=== PATIENT | female | born 1930 | race Caucasian/White ===

== ENCOUNTER → 2016-10-13 | Outpatient (CLI) | payer OTHER ==
--- NOTE | 2016-10-13 14:18 | PCVCIMAG ---
APPROVED REPORT Laterality: Bilateral Patient Location: Out-Patient Indications Bruit Stenosis Doppler Spectral Velocity Analysis PSV / EDVPSV / EDV ECA (R) 82 / 8 cm/sECA (L) 107 / 5 cm/s dICA (R) 70 / 17 cm/sdICA (L) 78 / 21 cm/s Mil (R) 63 / 18 cm/smICA (L) 80 / 20 cm/s pICA (R) 34 / 9 cm/spICA (L) 75 / 21 cm/s Bulb (R) 69 / 13 cm/sBulb (L) 56 / 13 cm/s dCCA (R) 77 / 12 cm/sdCCA (L) 67 / 15 cm/s mCCA (R) 76 / 14 cm/smCCA (L) 77 / 11 cm/s Vert (R) 49 / 15 cm/sVert (L) 47 / 10 cm/s ICA/CCA ICA/CCA Findings The right carotid bulb has mild plaque. The right proximal internal carotid artery shows no significant stenosis. The right common carotid artery shows no significant stenosis. The right external carotid artery shows no significant stenosis. The left carotid bulb has moderately severe calcified plaque. The left proximal internal carotid artery shows <40% stenosis. The left common carotid artery shows <40% stenosis. The left external carotid artery shows no significant stenosis. Conclusion 1. Right internal carotid artery plaquing 2. Left common and internal carotid artery stenoses (<40%) 3. Antegrade vertebral flow
--- NOTE | 2016-10-13 14:47 | PCVCIMAG ---
EXAM: NONINVASIVE ARTERIAL EXAMINATION OF BOTH LOWER EXTREMITIES INCLUDING PRE AND POST EXERCISE PRESSURE MEASUREMENTS AND DOPPLER WAVEFORMS INDICATION: Peripheral Arterial Disease. Leg pain. FINDINGS: Right Brachial: 140 mm Hg. Right Dorsalis Pedis: 157 mm Hg. Right Posterior Tibial: 145 mm Hg. Right ANGELICA = 1.12. Left Brachial: 140 mm Hg. Left Dorsalis Pedis: 156 mm Hg. Left Posterior Tibial: 126 mm Hg. Left ANGELICA = 1.11. Post Exercise: Left Brachial 178 mm Hg. Right Dorsalis Pedis: 140 mm Hg. Left Dorsalis Pedis: 184 mm Hg. Right ANGELICA = 0.79. Left ANGELICA = 1.03. IMPRESSION: No resting ischemia in the right lower extremity. Mild exercise induced ischemia in the right lower extremity. No resting ischemia in the left lower extremity. No exercise induced ischemia in the left lower extremity. LOC:[id number]
--- NOTE | 2016-10-13 14:50 | PCVCIMAG ---
EXAM: BILATERAL LOWER EXTREMITY ARTERIAL DUPLEX INDICATION: Peripheral Arterial Disease. Leg pain. FINDINGS: Right Leg: Satisfactory arterial waveforms in the common femoral and profunda femoral artery. 50% restenosis distal superficial femoral artery at distal margin of a prior stent. The popliteal artery is patent. The anterior tibial and peroneal arteries are patent. Distal posterior tibial artery is occluded. Left Leg: Satisfactory arterial waveforms in the common femoral and profunda femoral artery and in the superficial femoral and popliteal arteries without significant stenosis. Previous superficial femoral artery stent maintaining satisfactory patency. The anterior tibial and peroneal arteries are patent. Occlusion of the distal posterior tibial artery. IMPRESSION: 50% restenosis distal right superficial femoral artery within prior stent not felt to be critically flow-limiting. Previous left superficial femoral artery stent maintaining satisfactory patency. 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 LOC:[id number]
== END | disposition home or self-care (01) ==
LOC: PCVCIMAG 12:51
PROVIDERS: ATTEND Internal Medicine Cardiovascular Disease
DX: I65.23 Occlusion and stenosis of bilateral carotid arteries (principal); I25.10 Atherosclerotic heart disease of native coronary artery without angina pectoris; I73.9 Peripheral vascular disease, unspecified; I10 Essential (primary) hypertension; J44.9 Chronic obstructive pulmonary disease, unspecified; E11.9 Type 2 diabetes mellitus without complications; E78.00 Pure hypercholesterolemia, unspecified; M48.06 Spinal stenosis, lumbar region; Z98.62 Peripheral vascular angioplasty status; Z87.891 Personal history of nicotine dependence; Z88.0 Allergy status to penicillin
CPT/HCPCS: 80061; 93005; 93880; 93923; 93925; G0463; 93924